=== PATIENT | male | born 1970 | race Hispanic/Latino ===

== ENCOUNTER → 2022-01-12 | Outpatient (CLI) | payer OTHER ==
[~2022-01-12] MED LIST: GADOTERATE MEGLUMINE 10 MMOL/20 ML VIAL IV ONE
== END | disposition home or self-care (01) ==
LOC: RAH 13:04
PROVIDERS: ATTEND Otolaryngology Plastic Surgery within the Head & Neck
DX: Q01.9 Encephalocele, unspecified (principal)
CPT/HCPCS: 70553; A9575

== ENCOUNTER 2023-03-29 18:48 | Emergency (ER) | payer OTHER ==
[~2023-03-29] VITALS: Ht 170.2 cm; Wt 73.0 kg
[~2023-03-29 18:48] MED LIST changes: +BENZ200C53 PO; +BROM118S48 PO; -GADOTERATE MEGLUMINE 10 MMOL/20 ML VIAL IV ONE; +LORA10TA7 PO
[2023-03-29 19:16] VITALS: BP 141/92; PULSE 112; RESP 16
[2023-03-29] MEDS ORDERED: CEPH500B PO (20:01)
[2023-03-29] MEDS ORDERED: IBUP-2070 PO (20:02)
[2023-03-29] MEDS ORDERED: DIPH-1242 PO (20:02)
[2023-03-29] MEDS ORDERED: TETANUS/DIPHTHERIA TOXOID [ADULT] 0.5 ML VIAL IM ONE (20:30)
[2023-03-29] MEDS ORDERED: IBUPROFEN 600 MG TABLET PO ONE (20:30)
[2023-03-29] MEDS ORDERED: CEFTRIAXONE 1G VIAL IVPB ONE (20:30)
[2023-03-29] MEDS ORDERED: CEFTRIAXONE 1G VIAL IM ONE (20:30)
== END 2023-03-29 20:33 | disposition home or self-care (01) ==
LOC: EDH 18:48
DX: L03.113 Cellulitis of right upper limb (principal); E11.9 Type 2 diabetes mellitus without complications; I10 Essential (primary) hypertension
CPT/HCPCS: 99284; 90714; 96372; 90471; J0696